=== PATIENT | male | born 1950 | race Caucasian/White ===

== ENCOUNTER 2019-01-20 18:21 | Emergency (ER) | payer MEDICARE, OTHER ==
[~2019-01-20] VITALS: Ht 177.8 cm; Wt 122.5 kg
[2019-01-20 18:25] VITALS: BP 144/78
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
--- NOTE | 2019-01-20 20:16 | NUR ---
Patient/Caregiver given discharge instructions and they have confirmed that they understand the instructions. Patient ambulatory with steady gait.
== END 2019-01-20 20:17 | disposition home or self-care (01) ==
LOC: ED 20:11
DX: S16.1XXA Strain of muscle, fascia and tendon at neck level, initial encounter (principal); M25.512 Pain in left shoulder; I10 Essential (primary) hypertension; V49.49XA Driver injured in collision with other motor vehicles in traffic accident, initial encounter; Y93.89 Activity, other specified; Y92.89 Other specified places as the place of occurrence of the external cause; Y99.8 Other external cause status
CPT/HCPCS: 72125; 99284